=== PATIENT | female | born 1950 | race Caucasian/White ===

== ENCOUNTER 2017-03-25 11:28 | Emergency (ER) | payer MEDICARE ==
[~2017-03-25] VITALS: Ht 154.9 cm; Wt 59.9 kg
[2017-03-25] MEDS ORDERED: ONDANSETRON PF 4 MG/2 ML VIAL. IV ONE (12:45)
[2017-03-25] MEDS ORDERED: fentaNYL PF VIAL 100 MCG/2 ML VIAL IV PRN (12:45)
[2017-03-25 12:53] LABS: BASO # 0.1 x10^3/uL (0.0-0.2); BASO % 1 % (0-3); EOS % 7 % (0-3); HEMATOCRIT 39.6 % (36.0-47.0); HEMOGLOBIN 13.3 g/dL (12.0-15.5); LYMPH # 4.3 x10^3/uL (1.0-4.8); LYMPH % 42 % (24-48); MEAN CORPUSCULAR HEMOGLOBIN 32 pg (25-35); MEAN CORPUSCULAR HGB CONC 34 g/dL (31-37); MEAN CORPUSCULAR VOLUME 94 fL (79-100); MONO % 12 % (0-9); NEUT % 37 % (31-73); PLATELET COUNT 669 x10^3/uL (140-400); RED BLOOD COUNT 4.21 x10^6/uL (3.50-5.40); RED CELL DISTRIBUTION WIDTH 13.7 % (11.5-14.5); WHITE BLOOD COUNT 10.2 x10^3/uL (4.0-11.0)
[2017-03-25 13:00] LABS: CALCIUM 10.2 mg/dL (8.5-10.1); CREATININE 0.9 mg/dL (0.6-1.0); GFR 62.6; POTASSIUM 4.4 mmol/L (3.5-5.1)
[2017-03-25 13:06] LABS: ALBUMIN 3.9 g/dL (3.4-5.0); ALBUMIN/GLOBULIN RATIO 1.2 (1.0-1.7); TOTAL BILIRUBIN 0.2 mg/dL (0.2-1.0); TOTAL PROTEIN 7.2 g/dL (6.4-8.2)
--- NOTE | 2017-03-25 13:06 | PHYS DOC ---
Past Medical History Past Medical History: Asthma, High Cholesterol, Hypertension Past Surgical History: , Hysterectomy, Tonsillectomy Additional Past Surgical Histo: spleenectomy Alcohol Use: None Drug Use: None Adult General Chief Complaint Chief Complaint: FLANK PAIN HPI HPI Patient is a 66 year old female who presents with complaint of left-sided flank pain. Patient states that she has been having symptoms over the past week which have been intermittent, however starting last night she started getting constant pain to the left flank has been present throughout the night into today. Patient states that the pain is sharp and colicky. Patient states that she has had history of kidney stone in the past and feels that this pain is similar. Patient rates pain currently on my evaluation as 5 out of 10, which is different from her previous rating of 2 out of 10 during triage. Patient has had associated nausea but denies vomiting. Patient denies any known exacerbating or alleviating factors. Patient denies radiation of pain. Review of Systems Review of Systems Constitutional: Denies fever or chills [] Eyes: Denies change in visual acuity, redness, or eye pain [] HENT: Denies nasal congestion or sore throat [] Respiratory: Denies cough or shortness of breath [] Cardiovascular: Denies chest pain or edema[] GI: Nausea, denies abdominal pain, vomiting, bloody stools or diarrhea [] : Increased urinary frequency[] Musculoskeletal: Left flank pain[] Integument: Denies rash or skin lesions [] Neurologic: Denies headache, focal weakness or sensory changes [] Current Medications Current Medications Current Medications Medications (Trade) Dose Ordered Sig/[place] Start Time Stop Time Status Last Admin Dose Admin Fentanyl Citrate (Fentanyl 2ml Vial) 50 mcg PRN Q15MIN PRN 03/25/17 12:45 03/26/17 12:44 Ondansetron HCl (Zofran) 4 mg 1X ONCE 03/25/17 12:45 03/25/17 12:46 DC 03/25/17 12:50 4 MG Allergies Allergies Allergies Coded Allergies Type Severity Reaction Last Updated Verified No Known Drug Allergies 03/25/17 No Physical Exam Physical Exam Constitutional: Alert, afebrile, appears in mild to moderate discomfort. [] HENT: Normocephalic, atraumatic, bilateral external ears normal, oropharynx moist, no oral exudates, nose normal. [] Eyes: PERRLA, EOMI, conjunctiva normal, no discharge. [] Neck: Normal range of motion, no tenderness, supple, no stridor. [] Cardiovascular:Heart rate regular rhythm, no murmur [] Lungs & Thorax: Bilateral breath sounds clear to auscultation [] Abdomen: Bowel sounds normal, soft, no tenderness, no masses, no pulsatile masses. [] Skin: Warm, dry, no erythema, no rash. [] Back: No midline tenderness, left CVA tenderness is present, no flank ecchymosis. [] Extremities: No tenderness, no cyanosis, no clubbing, ROM intact, no edema. [] Neurologic: Alert and oriented X 3, normal motor function, normal sensory function, no focal deficits noted. [] Current Patient Data Vital Signs Vital Signs Date Time Temp Pulse Resp B/P (MAP) Pulse Ox O2 Delivery O2 Flow Rate FiO2 03/25/17 11:51 97.6 96 20 138/77 (97) 95 97.6 Lab Values Laboratory Tests Test 03/25/17 12:35 03/25/17 12:38 White Blood Count 10.2 x10^3/uL (4.0-11.0) Red Blood Count 4.21 x10^6/uL (3.50-5.40) Hemoglobin 13.3 g/dL (12.0-15.5) Hematocrit 39.6 % (36.0-47.0) Mean Corpuscular Volume 94 fL (79-100) Mean Corpuscular Hemoglobin 32 pg (25-35) Mean Corpuscular Hemoglobin Concent 34 g/dL (31-37) Red Cell Distribution Width 13.7 % (11.5-14.5) Platelet Count 669 x10^3/uL (140-400) H Neutrophils (%) (Auto) 37 % (31-73) Lymphocytes (%) (Auto) 42 % (24-48) Monocytes (%) (Auto) 12 % (0-9) H Eosinophils (%) (Auto) 7 % (0-3) H Basophils (%) (Auto) 1 % (0-3) Neutrophils # (Auto) 3.8 x10^3uL (1.8-7.7) Lymphocytes # (Auto) 4.3 x10^3/uL (1.0-4.8) Monocytes # (Auto) 1.2 x10^3/uL (0.0-1.1) H Eosinophils # (Auto) 0.7 x10^3/uL (0.0-0.7) Basophils # (Auto) 0.1 x10^3/uL (0.0-0.2) Sodium Level 140 mmol/L (136-145) Potassium Level 4.4 mmol/L (3.5-5.1) Chloride Level 104 mmol/L (98-107) Carbon Dioxide Level 24 mmol/L (21-32) Anion Gap 12 (6-14) Blood Urea Nitrogen 10 mg/dL (7-20) Creatinine 0.9 mg/dL (0.6-1.0) Estimated GFR (Cockcroft-Gault) 62.6 BUN/Creatinine Ratio 11 (6-20) Glucose Level 94 mg/dL (70-99) Calcium Level 10.2 mg/dL (8.5-10.1) H Total Bilirubin 0.2 mg/dL (0.2-1.0) Aspartate Amino Transferase (AST) 40 U/L (15-37) H Alanine Aminotransferase (ALT) 66 U/L (14-59) H Alkaline Phosphatase 76 U/L (46-116) Total Protein 7.2 g/dL (6.4-8.2) Albumin 3.9 g/dL (3.4-5.0) Albumin/Globulin Ratio 1.2 (1.0-1.7) Lipase 165 U/L (73-393) Urine Collection Type Unknown Urine Color Yellow Urine Clarity Clear Urine pH 7.0 Urine Specific [place] 1.010 Urine Protein Negative mg/dL (NEG-TRACE) Urine Glucose (UA) Negative mg/dL (NEG) Urine Ketones (Stick) Negative mg/dL (NEG) Urine Blood Negative (NEG) Urine Nitrite Negative (NEG) Urine Bilirubin Negative (NEG) Urine Urobilinogen Dipstick 0.2 mg/dL (0.2 mg/dL) Urine Leukocyte Esterase Small (NEG) Urine RBC Rare /HPF (0-2) Urine WBC 1-4 /HPF (0-4) Urine Bacteria Moderate /HPF (0-FEW) Laboratory Tests 03/25/17 12:35 Laboratory Tests 03/25/17 12:35 EKG EKG Not performed[] Radiology/Procedures Radiology/Procedures [facility] [address] [place] [address] IMAGING REPORT Signed PATIENT: WILFREDO VALDEZ ACCOUNT: [id number] : 1950 LOCATION: ER AGE: 66 SEX: F EXAM STATUS: PRE ER ORD. PHYSICIAN: DAREK SNYDER MD REASON: left-sided flank pain, possible kidney stone PROCEDURE: CT ABDOMEN PELVIS WO CONTRAST CT of the abdomen and pelvis without contrast, 03/25/2017: History: Left-sided flank pain Multidetector CT imaging was performed without contrast utilizing the renal stone protocol. No intrarenal calculi are identified. The renal collecting systems and ureters are not dilated. No ureteral calculus is identified. There are numerous bilateral pelvic calcifications which are probably vascular. The partially filled urinary bladder is unremarkable. There is bibasilar linear scarring and/or atelectasis. The liver is of much lower than normal density compatible with fatty infiltration. There is a peripheral area of more normal density present laterally in the right lobe liver. This corresponds in location to the site of a presumed hemangioma seen on an exam from 02/14/2008. There are several other smaller peripheral areas of medium density probably due to focal fatty sparing. The gallbladder is unremarkable. No hepatic abnormality is seen. The spleen is surgically absent. There is mild aortoiliac calcific plaquing without evidence of aneurysm. No abdominal or pelvic adenopathy is evident. The uterus is surgically absent. There are diverticula scattered throughout the colon. These are most numerous in the sigmoid region. No paracolonic inflammatory process is seen. The bowel loops are not dilated. The cecum extends into the mid pelvis at the midline. The appendix is not visualized. No dilated appendix is seen. No free fluid or free air is evident in the abdomen or pelvis. IMPRESSION: 1. No urinary tract calculi are identified. 2. Moderate colonic diverticulosis. 3. Extensive fatty infiltration of liver mild patchy focal fatty sparing. PQRS Compliance Statement: One or more of the following individualized dose reduction techniques were utilized for this examination: 1. Automated exposure control 2. Adjustment of the mA and/or kV according to patient size 3. Use of iterative reconstruction technique DICTATED and SIGNED BY: DOYLE LANDIN MD DATE: 03/25/17 1331 CC: DAREK SNYDER MD ~ [] Course & Med Decision Making Course & Med Decision Making Pertinent Labs and Imaging studies reviewed. (See chart for details) The patient was given IV fluids. The patient was offered pain medication but declined in the emergency department stating that she did not required at this time. The patient's CT scan shows no evidence of intraureteral calculi. Etiology of symptoms are unclear though with patient's history of diverticulosis , the symptoms of left lower quadrant pain may be associated with early diverticulitis with no radiographic evidence at this time. The patient will be started on Flagyl and Cipro for treatment. The patient will continue on outpatient course of Flagyl and Cipro. Patient also given [place] prescription to help with pain. Advise follow-up with patient's primary doctor in the next 3 days for reevaluation and return to emergency department for any worsening symptoms. Patient was understanding and in agreement with treatment plan. Dragon Disclaimer Dragon Disclaimer This electronic medical record was generated, in whole or in part, using a voice recognition dictation system. Departure Departure Impression: Primary Impression: Left flank pain Disposition: HOME, SELF-CARE Condition: IMPROVED Patient Instructions: Flank Pain Additional Instructions: Follow-up to primary doctor in 3 days for reevaluation. Return emergency department for any worsening symptoms. Scripts Hydrocodone/Apap 5-325 (NORCO 5-325 TABLET) 1 Each Tablet 1-2 TAB PO Q4-6HRS Y for PAIN, #20 TAB Prov: DAREK SNYDER MD 03/25/17 Metronidazole (FLAGYL) 500 Mg Tablet 500 MG PO TID, #30 TAB Prov: DAREK SNYDER MD 03/25/17 Ciprofloxacin Hcl (CIPRO) 500 Mg Tablet 1 TAB PO BID, #20 TAB Prov: DAREK SNYDER MD 03/25/17 DAREK SNYDER MD Mar 25, 2017 13:06
[2017-03-25 13:11] LABS: BILIRUBIN,URINE NEGATIVE (NEG); GLUCOSE,URINE NEGATIVE (NEG); NITRITE,URINE NEGATIVE (NEG); PROTEIN,URINE NEGATIVE (NEG-TRACE); UROBILINOGEN,URINE 0.2 mg/dL (0.2 mg/dL)
[2017-03-25 13:27] LABS: RBC,URINE RARE /HPF (0-2)
[2017-03-25 13:28] LABS: BACTERIA,URINE MODERATE /HPF (0-FEW)
--- NOTE | 2017-03-25 13:44 | RAD ---
CT of the abdomen and pelvis without contrast, 03/25/2017: History: Left-sided flank pain Multidetector CT imaging was performed without contrast utilizing the renal stone protocol. No intrarenal calculi are identified. The renal collecting systems and ureters are not dilated. No ureteral calculus is identified. There are numerous bilateral pelvic calcifications which are probably vascular. The partially filled urinary bladder is unremarkable. There is bibasilar linear scarring and/or atelectasis. The liver is of much lower than normal density compatible with fatty infiltration. There is a peripheral area of more normal density present laterally in the right lobe liver. This corresponds in location to the site of a presumed hemangioma seen on an exam from 02/14/2008. There are several other smaller peripheral areas of medium density probably due to focal fatty sparing. The gallbladder is unremarkable. No hepatic abnormality is seen. The spleen is surgically absent. There is mild aortoiliac calcific plaquing without evidence of aneurysm. No abdominal or pelvic adenopathy is evident. The uterus is surgically absent. There are diverticula scattered throughout the colon. These are most numerous in the sigmoid region. No paracolonic inflammatory process is seen. The bowel loops are not dilated. The cecum extends into the mid pelvis at the midline. The appendix is not visualized. No dilated appendix is seen. No free fluid or free air is evident in the abdomen or pelvis. IMPRESSION: 1. No urinary tract calculi are identified. 2. Moderate colonic diverticulosis. 3. Extensive fatty infiltration of liver mild patchy focal fatty sparing. PQRS Compliance Statement: One or more of the following individualized dose reduction techniques were utilized for this examination: 1. Automated exposure control 2. Adjustment of the mA and/or kV according to patient size 3. Use of iterative reconstruction technique
[2017-03-25] MEDS ORDERED: METR500T PO (14:25)
[2017-03-25] MEDS ORDERED: CIPR500T94 PO (14:25)
[2017-03-25] MEDS ORDERED: HYDR-971 PO (14:26)
[2017-03-25 14:38] VITALS: BP 115/67
== END 2017-03-25 14:41 | disposition home or self-care (01) ==
LOC: ER 11:28
DX: R10.9 Unspecified abdominal pain (principal); I10 Essential (primary) hypertension; J45.909 Unspecified asthma, uncomplicated; E78.00 Pure hypercholesterolemia, unspecified; Z90.710 Acquired absence of both cervix and uterus; Z98.890 Other specified postprocedural states
CPT/HCPCS: 36415; 74176; 80053; 81001; 83690; 85025; 87086; 87186; 96374; 99285; J2405